=== PATIENT | female | born 1990 | race Caucasian/White ===

== ENCOUNTER 2016-06-07 18:11 | Emergency (ER) | payer OTHER, MEDICAID ==
[~2016-06-07] VITALS: Ht 165.1 cm; Wt 60.0 kg
[~2016-06-07 18:11] MED LIST: HUMALOG SQ
[2016-06-07 18:13] VITALS: BP 126/86; PULSE 115; RESP 15; TEMP 98.1; O2SAT 98
[2016-06-07 21:10] LABS: BLOOD, URINE NEG (NEG); COMMENT (UR) CULTURE INDICATED; CULTURE IF INDICATED CULTURE INDICATED; GLUCOSE,URINE TRACE mg/dL (NEG); KETONE, URINE NEG (NEG); MUCUS URINE FEW /lpf (OCC); NITRITE,URINE NEG (NEG); SQUAMOUS EPITHELIAL CELL URINE 6 /hpf (0-5); URINE COLOR YELLOW (YELLW/STRAW)
[2016-06-07] MEDS ORDERED: DOXY100C PO (21:10)
[2016-06-07] MEDS ORDERED: METR-1 PO (21:10)
--- NOTE | 2016-06-07 21:10 | PD ---
HPI Chief Complaint: Complaint Time Seen by Provider: 19:37 Travel History International Travel<30 days: No Contact w/Intl Traveler<30days: No Traveled to known affect area: No History of Present Illness HPI The patient is 25 years old. She's been once and gave to a healthy twins. She arrives at the request of Dr. Mai with concern for PID. She has had vaginal discharge white. She also reports pain in the right lower quadrant. It was quite severe 2 days ago however has since resolved with only minimal pain at time of interview. She reports a history of prior STDs. Last menstruation was about one month prior. She reports one active sexual partner. The patient has diabetes type 1 with an insulin pump. She takes no meds. She's had no prior surgery. She smokes one pack of cigarettes per day. She denies a past surgical history. No n/v/d. No fever. PFSH Past Medical History Diabetes: Yes Patient Takes Glucophage: No (INSULIN PUMP) Musculoskeletal: Yes (FRACTURED FEMUR ) Tetanus Vaccination: > 5 Years Influenza Vaccination: No ?: Unknown LMP: Apr : 1 Para: 1 Past Surgical History Surgical History: No Previous Surgery Social History Alcohol Use: Yes (OCC) Tobacco Use: Yes Substance Use: No Allergies-Medications (Allergen,Severity, Reaction): Coded Allergies: Penicillin (Verified Allergy, Severe, 06/07/16) Reported Meds & Prescriptions Reported Meds & Active Scripts Active Doxycycline Hyclate 100 Mg Cap 100 Mg PO BID 14 Days Flagyl (Metronidazole) 500 Mg Tab 500 Mg PO BID 14 Days Reported Humalog (Insulin Human Lispro) 100 Units/Ml Inj 0 SQ DIRECTED Sliding Scale As Directed. Review of Systems Except as stated in HPI: all other systems reviewed are Neg General / Constitutional: No: Fever Genitourinary: Positive: Discharge Physical Exam Narrative GENERAL: 25-year-old female pleasant no acute distress GENITOURINARY: External genitalia normal. Minimal CMT. Minimal tenderness on the right side without adnexal mass. No adnexal mass or tenderness on left. Minimal purulent discharge. SKIN: Warm and dry. HEAD: Atraumatic. Normocephalic. EYES: Pupils equal and round. No scleral icterus. No injection or drainage. ENT: No nasal bleeding or discharge. Mucous membranes pink and moist. NECK: Trachea midline. No JVD. CARDIOVASCULAR: Regular rate and rhythm. No murmur appreciated. RESPIRATORY: No accessory muscle use. Clear to auscultation. Breath sounds equal bilaterally. GASTROINTESTINAL: Soft. No guarding. Minimal tenderness on the right side. MUSCULOSKELETAL: No obvious deformities. No clubbing. No cyanosis. No edema. NEUROLOGICAL: Awake and alert. No obvious cranial nerve deficits. Motor grossly within normal limits. Normal speech. PSYCHIATRIC: Appropriate mood and affect; insight and judgment normal. Data Data Last Documented VS Vital Signs Date Time Temp Pulse Resp B/P Pulse Ox O2 Delivery O2 Flow Rate FiO2 06/07/16 18:13 98.1 115 15 126/86 98 Vital signs to be rechecked prior to discharge Orders Gc And Chlamydia Pcr (06/07/16 20:06) Wet Prep Profile (06/07/16 20:06) Urinalysis - C+S If Indicated (06/07/16 20:06) Ed Urine Pregnancytest Poc (06/07/16 20:06) Doxycycline (Vibratab) (06/07/16 21:15) Metronidazole (Flagyl) (06/07/16 21:15) Azithromycin Powd Pack (Zithromax Powd P (06/07/16 21:15) Ceftriaxone Inj (Rocephin Inj) (06/07/16 21:15) Lidocaine 1% Inj (50 Ml) (Xylocaine 1% I (06/07/16 21:15) MDM Medical Decision Making Medical Screen Exam Complete: Yes Emergency Medical Condition: Yes Medical Record Reviewed: Yes Differential Diagnosis IUP, UTI, ectopic , ov torsion, appendicitis, TOA, cervicitis, BV, Trichomoniasis, ov cyst, hernia, mittelschmerz, pain from menstruation Narrative Course Urinalysis reveals a UTI The patient insisted on leaving the ER as soon as possible, prior to availability of wet prep. There is minimal tenderness in the right lower quadrant. The patient states one of the reason she chooses to leave his hunger. We discussed appendicitis is a possibility with strict return precautions especially in the next 8 hours. Patient has verbalized understanding. Empiric treatment for PID provided all the etiology of pain is indeterminate at this point. Diagnosis Primary Impression: Pelvic pain Referrals: Daylin Mai MD 1 day Additional Instructions: You have a choice when it comes to health care, and we are glad that you chose [facility]. Hopefully, we have met your expectations on today's visit. You are welcome to return to [facility] at any time, as we are committed to meeting the health care needs of our community. Med/Other Pt SpecificInfo: Prescription(s) given Scripts Doxycycline Hyclate 100 Mg [id number] Mg PO BID 14 Days Ref 0 Prov:Neto Blackwell MD 06/07/16 Metronidazole (Flagyl)500 Mg [id number] Mg PO BID 14 Days Ref 0 Prov:Neto Blackwell MD 06/07/16 Disposition: 01 DISCHARGE HOME Condition: Stable Neto Blackwell MD Jun 07, 2016 21:10
[2016-06-07] MEDS ORDERED: cefTRIAXone 250 MG VIAL IM ONE (21:15)
[2016-06-07] MEDS ORDERED: LIDOCAINE HCL 1% 50 ML VIAL IM ONE (21:15)
[2016-06-07] MEDS ORDERED: AZITHROMYCIN PWD FOR SUSP 1 GM PACKET PO ONE (21:15)
[2016-06-07] MEDS ORDERED: metroNIDAZOLE 500 MG TAB PO ONE (21:15)
[2016-06-07] MEDS ORDERED: DOXYCYCLINE HYCLATE 100 MG TAB PO ONE (21:15)
[2016-06-07 21:26] VITALS: BP 116/72; PULSE 68; RESP 18; O2SAT 98
[2016-06-07 23:29] LABS: CHLAMYDIA PCR NOT DETECTED (NOT DETECT); NEISSERIA PCR NOT DETECTED (NOT DETECT)
== END 2016-06-07 21:38 | disposition home or self-care (01) ==
LOC: NEPE 18:11
DX: R10.2 Pelvic and perineal pain (principal); F17.210 Nicotine dependence, cigarettes, uncomplicated; E10.9 Type 1 diabetes mellitus without complications; Z79.4 Long term (current) use of insulin
CPT/HCPCS: 81001; 84703; 87086; 87210; 87491; 87591; 96372; 99284; J0696

== ENCOUNTER 2016-07-07 10:52 | Emergency (ER) | payer OTHER, MEDICAID ==
[~2016-07-07] VITALS: Ht 165.1 cm; Wt 61.0 kg
[~2016-07-07 10:52] MED LIST changes: +DOXY100C PO; +METR-1 PO
[2016-07-07 10:55] VITALS: BP 129/60; PULSE 64; RESP 18; TEMP 97.6; O2SAT 100
[2016-07-07] MEDS ORDERED: ONDANSETRON HCL 4 MG/2 ML VIAL IV PUSH ONE (11:15)
[2016-07-07] MEDS ORDERED: SODIUM CHLOR 0.9% 1000 ML INJ 1,000 ML IV ONE (11:15)
[2016-07-07] MEDS ORDERED: NITROGLYCERIN 0.4 MG SL 25 TABS/BTL SL ONE (11:21)
[2016-07-07] MEDS ORDERED: KETOROLAC TROMETHAMINE 30 MG/ML (IVP) VIAL IV PUSH ONE (11:30)
--- NOTE | 2016-07-07 11:31 | PD ---
HPI Chief Complaint: GI Complaint Time Seen by Provider: 11:08 Travel History International Travel<30 days: No Contact w/Intl Traveler<30days: No History of Present Illness HPI 25 y/o female presents with nonbloody emesis and epigastric abdominal pain over the past couple of days. She has frequent history of kidney infections and this feels similar. She states her menstrual cycle was on the 26th of last month. She states that she has no other concurrent complaints. Quality of pain is sharp. Severity is severe per patient. Pain is worse with movement. She denies other modifying factors or other concurrent complaints. PFSH Past Medical History Diabetes: Yes Musculoskeletal: Yes (FRACTURED FEMUR ) : 1 Para: 1 Social History Alcohol Use: Yes (OCC) Tobacco Use: Yes Substance Use: No Allergies-Medications (Allergen,Severity, Reaction): Coded Allergies: Penicillin (Verified Allergy, Severe, 06/07/16) Reported Meds & Prescriptions Reported Meds & Active Scripts Active Zofran Odt (Ondansetron Odt) 4 Mg Tab 4 Mg SL Q6HR PRN Macrobid (Nitrofurantoin Monoh/Nitrofur Macro) 100 Mg Cap 100 Mg PO BID 5 Days Reported [insulin pump] Review of Systems Except as stated in HPI: all other systems reviewed are Neg Physical Exam Narrative GENERAL: Well-nourished, well-developed patient. SKIN: Warm and dry. HEAD: Normocephalic and atraumatic. EYES: No injection or drainage. ENT: No nasal drainage noted. NECK: Supple, trachea midline. CARDIOVASCULAR: Regular rate and rhythm RESPIRATORY: No increased effort. No accessory muscle use. GASTROINTESTINAL: Abdomen soft, mild tenderness with deep palpation in epigastric area, nondistended. No rebound or guarding EXTREMITIES: No edema. NEUROLOGICAL: Awake and alert. Motor and sensory grossly within normal limits. Normal speech. Data Data Last Documented VS Vital Signs Date Time Temp Pulse Resp B/P Pulse Ox O2 Delivery O2 Flow Rate FiO2 07/07/16 11:57 97 07/07/16 11:44 98.3 66 16 143/66 Orders Complete Blood Count With Diff (07/07/16 11:14) Iv Access Insert/Monitor (07/07/16 11:14) Ecg Monitoring (07/07/16 11:14) Oximetry (07/07/16 11:14) Ed Urine Pregnancytest Poc (07/07/16 11:14) Sodium Chlor 0.9% 1000 Ml Inj (Ns 1000 M (07/07/16 11:15) Ondansetron Inj (Zofran Inj) (07/07/16 11:15) Blood Glucose (07/07/16 11:14) Urinalysis - C+S If Indicated (07/07/16 11:15) Comprehensive Metabolic Panel (07/07/16 11:18) Lipase (07/07/16 11:18) Ketorolac Inj (Toradol Inj) (07/07/16 11:30) Nitroglycerin Sl (Nitrostat Sl) (07/07/16 11:21) Urine Culture (07/07/16 11:40) Labs Laboratory Tests Test 07/07/16 11:40 White Blood Count 11.5 TH/MM3 Red Blood Count 4.87 MIL/MM3 Hemoglobin 14.2 GM/DL Hematocrit 42.3 % Mean Corpuscular Volume 86.8 FL Mean Corpuscular Hemoglobin 29.2 PG Mean Corpuscular Hemoglobin 33.7 % Concent Red Cell Distribution Width 13.6 % Platelet Count 152 TH/MM3 Mean Platelet Volume 9.3 FL Neutrophils (%) (Auto) 86.9 % Lymphocytes (%) (Auto) 9.5 % Monocytes (%) (Auto) 2.8 % Eosinophils (%) (Auto) 0.2 % Basophils (%) (Auto) 0.6 % Neutrophils # (Auto) 10.0 TH/MM3 Lymphocytes # (Auto) 1.1 TH/MM3 Monocytes # (Auto) 0.3 TH/MM3 Eosinophils # (Auto) 0.0 TH/MM3 Basophils # (Auto) 0.1 TH/MM3 CBC Comment DIFF FINAL Differential Comment Urine Color YELLOW Urine Turbidity HAZY Urine pH 7.0 Urine Specific Effie 1.042 Urine Protein TRACE mg/dL Urine Glucose (UA) 1000 mg/dL Urine Ketones 80 mg/dL Urine Occult Blood NEG Urine Nitrite NEG Urine Bilirubin NEG Urine Urobilinogen LESS THAN 2.0 MG/DL Urine Leukocyte Esterase LARGE Urine RBC 1 /hpf Urine WBC 8 /hpf Urine Squamous Epithelial 5 /hpf Cells Urine Bacteria MOD /hpf Microscopic Urinalysis Comment CULTURE INDICATED Sodium Level 136 MEQ/L Potassium Level 4.1 MEQ/L Chloride Level 101 MEQ/L Carbon Dioxide Level 26.7 MEQ/L Anion Gap 8 MEQ/L Blood Urea Nitrogen 12 MG/DL Creatinine 0.95 MG/DL Estimat Glomerular Filtration 72 ML/MIN Rate Random Glucose 299 MG/DL Calcium Level 8.9 MG/DL Total Bilirubin 0.7 MG/DL Aspartate Amino Transf 10 U/L (AST/SGOT) Alanine Aminotransferase 17 U/L (ALT/SGPT) Alkaline Phosphatase 74 U/L Total Protein 7.6 GM/DL Albumin 4.3 GM/DL Lipase 74 U/L [facility] Medical Decision Making Medical Screen Exam Complete: Yes Emergency Medical Condition: Yes Medical Record Reviewed: Yes (past history confirmed, prior culture reviewed) Interpretation(s) CBC & BMP Diagram 07/07/16 11:40 ua with signs of infection beta is negative Differential Diagnosis DKA, gastritis, pancreatitis, cyst, UTI Narrative Course Will check blood work, urinalysis and dose with IV fluids, Zofran, Toradol and reevaluate no emesis here, Patient denies any new complaints and states that they are feeling better. Patient happy with care, all questions answered. Patient knows that follow up is incumbent on them and to return to the emergency room immediately if new or worsening symptoms develop. Patient given strict return precautions, vitals reviewed and are normal, agrees to further workup as an outpatient. Diagnosis Primary Impression: UTI (urinary tract infection) Qualified Code: N39.0 - Urinary tract infection without hematuria, site unspecified Additional Impressions: Vomiting Qualified Code: R11.2 - Non-intractable vomiting with nausea, unspecified vomiting type Abdominal pain Qualified Code: R10.13 - Epigastric pain Patient Instructions: General Instructions Additional Instructions: return as needed, follow with primary this week, zofran as needed, tylenol as needed Med/Other Pt SpecificInfo: Prescription(s) given Scripts Ondansetron Odt (Zofran Odt)4 Mg Tab4 Mg SL Q6HR PRN (Nausea/Vomiting) #10 TAB Prov:Layla Oconnell MD 07/07/16 Nitrofurantoin Monohydrate Macrocrystals (Macrobid)100 Mg [id number] Mg PO BID 5 Days Prov:Layla Oconnell MD 07/07/16 Disposition: 01 DISCHARGE HOME Condition: Stable Layla Oconnell MD Jul 07, 2016 11:31
[2016-07-07 11:44] VITALS: BP 143/66; PULSE 66; RESP 16; TEMP 98.3; O2SAT 97
[2016-07-07 11:51] LABS: BASOPHIL # 0.1 TH/MM3 (0-0.2); BASOPHIL % 0.6 % (0.0-2.0); EOSINOPHIL % 0.2 % (0.0-4.0); HEMATOCRIT 42.3 % (35.0-46.0); HEMO FLAGS DIFF FINAL; LYMPH % 9.5 % (9.0-44.0); LYMPHOCYTE # 1.1 TH/MM3 (1.0-4.8); MEAN CELL VOLUME 86.8 FL (80.0-100.0); MEAN CORPUSCULAR HEMOGLOBIN 29.2 PG (27.0-34.0); MEAN CORPUSCULAR HGB CONC 33.7 % (32.0-36.0); MONO % 2.8 % (0.0-8.0); NEUT % 86.9 % (16.0-70.0); PLATELET COUNT 152 TH/MM3 (150-450); RED BLOOD COUNT 4.87 MIL/MM3 (4.00-5.30); RED CELL DISTRIBUTION WIDTH 13.6 % (11.6-17.2); WHITE BLOOD COUNT 11.5 TH/MM3 (4.0-11.0)
[2016-07-07 11:57] VITALS: O2SAT 97
[2016-07-07 12:01] LABS: BACTERIA, URINE MOD /hpf; BLOOD, URINE NEG (NEG); COMMENT (UR) CULTURE INDICATED; CULTURE IF INDICATED CULTURE INDICATED; GLUCOSE,URINE 1000 mg/dL (NEG); KETONE, URINE 80 mg/dL (NEG); NITRITE,URINE NEG (NEG); SQUAMOUS EPITHELIAL CELL URINE 5 /hpf (0-5); URINE COLOR YELLOW (YELLW/STRAW)
[2016-07-07 12:19] LABS: ALT (GPT) 17 U/L (10-53); ANION GAP 8 MEQ/L (5-15); AST (GOT) 10 U/L (15-37); BICARBONATE 26.7 MEQ/L (21.0-32.0); BLOOD UREA NITROGEN 12 MG/DL (7-18); CHLORIDE 101 MEQ/L (98-107); GLOMERULAR FILTRATION RATE 72 ML/MIN (>89); POTASSIUM 4.1 MEQ/L (3.5-5.1); SODIUM (NA) 136 MEQ/L (136-145)
[2016-07-07 12:21] LABS: ALKALINE PHOSPHATASE 74 U/L (45-117); TOTAL BILIRUBIN ADULT 0.7 MG/DL (0.2-1.0)
[2016-07-07] MEDS ORDERED: insulin pump (12:25)
[2016-07-07] MEDS ORDERED: ZOFR4TAB3 SL (12:31)
[2016-07-07] MEDS ORDERED: MACR100C2 PO (12:31)
== END 2016-07-07 13:36 | disposition home or self-care (01) ==
LOC: NEPC 10:52
DX: N39.0 Urinary tract infection, site not specified (principal); B96.89 Other specified bacterial agents as the cause of diseases classified elsewhere; R11.2 Nausea with vomiting, unspecified; R10.13 Epigastric pain
CPT/HCPCS: 80053; 81001; 83690; 84703; 85025; 87086; 96361; 96374; 96375; 99284; J1885; J2405; J7030